=== PATIENT | female | born 1985 | race Caucasian/White ===

== ENCOUNTER 2018-06-26 05:19 | Inpatient (IN) | payer BC ==
[2018-06-26 06:02] VITALS: BMI 23.3
[2018-06-26] MEDS ORDERED: Magnesium Sulfate 20 gm/500 ml 20 GM/500 ML BAG ONE (06:14)
[2018-06-26] MEDS ORDERED: Labetalol HCl 100 MG/20 ML VIAL ONE (06:15)
[2018-06-26] MEDS ORDERED: Betamet Acet/Betamet Na Ph 30 MG/5 ML VIAL ONE (06:15)
[2018-06-26] MEDS: Lactated Ringer's 1,000 ML IV SCH ×2 (06:17→20:04)
[2018-06-26] MEDS ORDERED: Calcium Gluc 4.6 MEQ/10 ML (100 MG/ML) SLOW IVP PRN (06:31)
[2018-06-26] MEDS ORDERED: Labetalol HCl 100 MG/20 ML VIAL SLOW IVP PRN (06:31)
[2018-06-26] MEDS ORDERED: HYDROcodone/Acetaminophen 5/325 mg Tablet PO PRN ×2 (06:31)
[2018-06-26] MEDS ORDERED: Acetaminophen 500 MG TAB PO PRN (06:31)
[2018-06-26] MEDS ORDERED: Lidocaine 1% (PF) 30 ML VIAL SC PRN (06:31)
[2018-06-26] MEDS ORDERED: Diphenoxylate HCl/Atropine Tablet PO PRN (06:31)
[2018-06-26] MEDS ORDERED: Butorphanol Tartrate 1 MG/ML VIAL SLOW IVP PRN (06:31)
[2018-06-26] MEDS ORDERED: Promethazine HCl 25 MG/ML VIAL IM PRN (06:31)
[2018-06-26] MEDS ORDERED: Misoprostol 200 MCG TAB PR PRN (06:31)
[2018-06-26] MEDS ORDERED: Sodium Chloride 0.9% 100 ML ONE (06:38)
[2018-06-26] MEDS ORDERED: Penicillin G Potassium 5 MILL.UNITS VIAL ONE (06:38)
[2018-06-26] MEDS ORDERED: Magnesium Sulfate 20 GM/WATER 500 ML BAG IVPB SCH (06:45)
[2018-06-26] MEDS ORDERED: Penicillin G Potassium 5 MILL.UNITS in Sodium Chloride 0.9% 100 ML IVPB SCH (06:45)
[2018-06-26 06:56] LABS: Hemoglobin 11.9 g/dL (12.0-16.0); Mean Corpuscular HGB CONC 36.5 g/dL (32.0-36.0); Mean Corpuscular Hemoglobin 32.7 pg (27.0-31.0); Mean Corpuscular Volume 89.8 fL (78.0-98.0); Mean Platelet Volume 8.6 fL (7.4-10.4); Platelet Count 168 thou/uL (130-400); RBC Distribution Width 11.8 % (11.5-14.5); Red Blood Cell (RBC) Count 3.63 mill/uL (4.20-5.40); White Blood Cell (WBC) Count 10.3 thou/uL (4.8-10.8)
[2018-06-26 07:03] LABS: ALT (SGPT) 13 U/L (8-55); AST (SGOT) 15 U/L (5-34); Albumin 4.6 g/dL (3.5-5.0); Alkaline Phosphatase 61 U/L (40-150); Anion Gap 13 mmol/L (10-20); BUN (Urea Nitrogen) 15 mg/dL (7.0-18.7); Bilirubin, Total 0.5 mg/dL (0.2-1.2); Calc. Creatinine Clearance 108 mL/min (70-130); Calcium 9.4 mg/dL (7.8-10.44); Carbon Dioxide 24 mmol/L (22-29); Chloride 105 mmol/L (98-107); Estimated GFR-MDRD Greater than 90; Globulin 2.5 g/dL (2.4-3.5); Glucose 96 mg/dL (70-105); Potassium 3.9 mmol/L (3.5-5.1); Protein, Total 7.1 g/dL (6.0-8.3); Sodium 138 mmol/L (136-145)
[2018-06-26 07:22] LABS: Syphilis Antibody Nonreactive (Nonreactive); Syphilis Antibody Index 0.13 S/CO (<1.00 Non-Reactive)
[2018-06-26 07:29] LABS: HBSAg Index 0.21 S/CO (0-0.99); Hep B Surf Ag Non-Reactive S/CO (NonReactive)
[2018-06-26] MEDS: Ondansetron HCl/PF 4 MG/2 ML Vial IVP PRN (07:30)
--- NOTE | 2018-06-26 08:10 | PDOC.LDHP ---
Labor and Delivery H&P Chief complaint: loss of fluid HPI: 32yo at 35w1d by LMP c/o ROM this am, clear fluid. Denies sx PIH. Occ abd pain, no intense ctx pains. Good FM Current gestational age (weeks): 35 Due date: 07/29/18 Dating criteria: last menstrual period Grav: 1 Para: 0 Current complications: none Abnormal US findings: No Past Medical History: CHTN prev on lisinopril, nl BP this , h/o aplastic anemia s/p chemo and BMT, RENUKA since > 10 yr ago. hypothyroidism, on replacement, well controlled. Current medications: pre-hunter vitamins, other (levothyroxine) Previous surgical history: other (bone marrow transplant, blood transfusions with aplastic anemia) Allergies/Adverse Reactions: Allergies Allergy/AdvReac Type Severity Reaction Status Date / Time amoxicillin [From Augmentin] Allergy Mild Hives Verified 06/05/18 21:37 clavulanic acid Allergy Mild itching Verified 06/05/18 21:37 [From Augmentin] promethazine [From Phenergan] Allergy Mild itching Verified 06/05/18 21:37 tramadol Allergy Mild itching Verified 06/05/18 21:37 Social history: none - Physical Exam Vital signs reviewed and normal: yes General: NAD (nervous) Heart: RRR Lungs: CTAB Abdomen: gravid Extremeties: no edema FHT: category 1 [place] contractions every: rare - Vaginal Exam cm dilated: 6 Effacement: 100% Station: 0 (forebag palpable) - OB Labs RH: positive Antibody Screen: negative HIV: negative RPR: negative HEPSAg: negative 1 hour GCT: positive 3 hour GTT: normal GBS: unknown Urine drug screen: not done Rubella: immune - Assessment L&D Assessment: labor (/SROM, SIPIH) - Plan Plan: admit to L&D, GBS antibiotic prophylaxis, informed consent obtained, magnesium for seizure prophylaxis (labs wnl, urine pending. s/p labetalol 20 IV with mild range BP resulting, will cont prn labetalol.), anesthesia consult for pain management, other (BMZ 1/2, sofy consult per pt request)
[2018-06-26] MEDS: Betamet Acet/Betamet Na Ph 30 MG/5 ML VIAL IM SCH ×2 (08:19→18:35)
[2018-06-26] MEDS: Penicillin G 2.5 MILL.units 2.5 MILL.UNITS in Premix Bag 1 BAG IVPB SCH ×4 (10:58→23:35)
[2018-06-26] MEDS: Magnesium Sulfate 20 gm/500 ml 20 GM/500 ML BAG IVPB SCH (14:45)
[2018-06-26] MEDS ORDERED: Zolpidem Tartrate 5 MG TAB PO PRN (23:09)
[2018-06-27] MEDS: Magnesium Sulfate 20 gm/500 ml 20 GM/500 ML BAG IVPB SCH ×2 (00:30→10:05)
[2018-06-27] MEDS: Penicillin G 2.5 MILL.units 2.5 MILL.UNITS in Premix Bag 1 BAG IVPB SCH ×4 (04:46→18:18)
[2018-06-27] MEDS: Ondansetron HCl/PF 4 MG/2 ML Vial IVP PRN ×2 (06:14→11:54)
[2018-06-27] MEDS ORDERED: DISCONTINUE ALL PREVIOUS NARCOTICS FS SCH (07:30)
--- NOTE | 2018-06-27 07:55 | PDOC.LDPN ---
Labor & Delivery Progress Note - Subjective Subjective: comfortable, loss of fluid - Objective Vital signs reviewed and normal: yes General: NAD Uterine fundus: non tender Dilation: 6 Effacement: 100% Station: 0 AROM: clear fluid (forebag aromed) Plan: pitocin for augmentation, other (on PCN for GBS ppx, on Mag for sx ppx, no signs of PIH or mag toxicity, s/p labetalol this am for severe BP, labs wnl, PCR 1.5. Proceed with pitocin for augmentation.)
[2018-06-27] MEDS ORDERED: NS w/ Oxytocin 10 units 500 ML IV SCH (08:00)
[2018-06-27] MEDS ORDERED: Fentanyl 100 MCG/2 ML VIAL ONE (08:50)
[2018-06-27] MEDS: Bupivacaine 0.5% 20 ML, fentaNYL Citrate/PF 400 MCG in Sodium Chloride 0.9% 72 ML EPIDURAL SCH ×2 (09:26→17:30)
[2018-06-27] MEDS: Lactated Ringer's 1,000 ML IV SCH ×3 (14:56→23:35)
[2018-06-27] MEDS: hydrALAZINE 20 MG/ML VIAL SLOW IVP PRN (18:00)
[2018-06-27] MEDS: NS / Oxytocin 40 units/1000ml 1,000 ML IV PRN ×2 (20:48→21:54)
[2018-06-27 20:51] LABS: Actual Bicarbonate (HCO3a) 21.6 mEq/L (22-28); Base Excess (BEa) -4.8 mEq/L (-2.0 to +3.0)
[2018-06-27] MEDS: Carboprost 250 MCG/ML AMP IM PRN ×2 (20:55→21:23)
--- NOTE | 2018-06-27 21:09 | PDOC.LDPN ---
Labor & Delivery Progress Note - Subjective Subjective: comfortable - Objective Vital signs reviewed and normal: yes General: NAD Uterine fundus: non tender Dilation: 7 Effacement: 90% Station: 0 FHT: category 1 [place] contractions every: 5min Plan: pitocin for augmentation -: (late entry from 1200 today) Pt very obtunded on exam, DTR decreased 1+ throughout, stop Mag and check stat Mag level, no sx PIH. s/p epidural. FHT reassuring. Cont pitocin induction and GBS ppx.
--- NOTE | 2018-06-27 21:12 | PDOC.OPDEL ---
OB Operative/Delivery Note Delivery Dr/Surgeon: Josie Assist: n/a Pre-Delivery Diagnosis: ruptured membrane (superimposed PIH at 35wk) Procedure/Post Delivery Dx: spontaneous vaginal delivery (cord avulsion, PPH) Weeks gestation: 35 Anesthesia: epidural - Findings A Sex: female Weight: 4 lb 10 oz - 1 min: 3 - 5 min: 7 (9 at 10 min) - Additional Findings/Plan Placenta delivered: manual removal (following cord avulsion, prolonged 3rd stage , placenta would not separate intact, delivered in piecemeal fashion manually. Brisk bleeding following placenta, pitocin infusion and uterotonics called for, baig catheter replaced, manual uterine exploration performed mutiple times until no remaining fragments of placenta were found. Hemabate and cytotec were given. Uterus contracted well and appropriate lochia was present. EBL 2L, final qbl pending.) Repaired Obstetrical Laceration: 1st degree (hemostatic and unrepaired.) Estimated blood loss: 1741cc Post delivery plan: recovery in LICU
[2018-06-27] MEDS ORDERED: Carboprost 250 MCG/ML AMP IM SCH ×2 (21:15→21:30)
[2018-06-27] MEDS ORDERED: Magnesium Sulfate 20 gm/500 ml 20 GM/500 ML BAG IVPB SCH (21:16)
[2018-06-27] MEDS ORDERED: Diphenoxylate HCl/Atropine Tablet PO PRN (21:17)
[2018-06-27 21:19] LABS: #Eosinphils 0.1 thou/uL (0.0-0.7); #Lymphocytes 1.4 thou/uL (1.20-3.40); #Monocytes 1.2 thou/uL (0.11-0.59); %Basophils 0.1 % (0.0-1.0); %Eosinophils 0.8 % (0.0-10.0); %Lymphocytes 10.7 % (21.0-51.0); %Monocytes 9.5 % (0.0-10.0); %Neutrophils 78.9 % (42.0-75.0); Hemoglobin 9.2 g/dL (12.0-16.0); Mean Corpuscular HGB CONC 36.5 g/dL (32.0-36.0); Mean Corpuscular Hemoglobin 33.1 pg (27.0-31.0); Mean Corpuscular Volume 90.7 fL (78.0-98.0); Mean Platelet Volume 8.3 fL (7.4-10.4); Platelet Count 132 thou/uL (130-400); RBC Distribution Width 12.1 % (11.5-14.5); Red Blood Cell (RBC) Count 2.77 mill/uL (4.20-5.40); White Blood Cell (WBC) Count 12.6 thou/uL (4.8-10.8)
[2018-06-27] MEDS ORDERED: Lanolin Ointment 7 GM TUBE TOP PRN (23:06)
[2018-06-27] MEDS ORDERED: Preparation H Ointment 28 GM TUBE PR PRN (23:06)
[2018-06-27] MEDS ORDERED: HYDROcodone/Acetaminophen 5/325 mg Tablet PO PRN ×2 (23:06)
[2018-06-27] MEDS ORDERED: Benzocaine/Menthol 20-0.5% 60 ML CAN TOP PRN (23:06)
[2018-06-27] MEDS ORDERED: diphenhydrAMINE 25 MG CAP PO PRN (23:06)
[2018-06-27] MEDS ORDERED: Milk Of Magnesia 30 ML UDCUP PO PRN (23:06)
[2018-06-27] MEDS ORDERED: Bisacodyl 10 MG SUPP PR PRN (23:06)
[2018-06-27] MEDS ORDERED: NS / Oxytocin 40 units/1000ml 1,000 ML IV SCH (23:06)
[2018-06-27] MEDS ORDERED: Ibuprofen 800 MG TAB PO SCH (23:30)
[2018-06-28] MEDS: Penicillin G 2.5 MILL.units 2.5 MILL.UNITS in Premix Bag 1 BAG IVPB SCH ×2 (00:28→00:41)
[2018-06-28] MEDS: Ondansetron HCl/PF 4 MG/2 ML Vial IVP PRN (00:41)
[2018-06-28 05:53] LABS: Hemoglobin 7.6 g/dL (12.0-16.0); Mean Corpuscular Hemoglobin 33.2 pg (27.0-31.0); Mean Platelet Volume 8.4 fL (7.4-10.4); Platelet Count 110 thou/uL (130-400); RBC Distribution Width 12.4 % (11.5-14.5); Red Blood Cell (RBC) Count 2.29 mill/uL (4.20-5.40); White Blood Cell (WBC) Count 15.3 thou/uL (4.8-10.8)
[2018-06-28] MEDS ORDERED: Adacel (T-DAP) 0.5 ML VIAL IM ONE (09:00)
[2018-06-28] MEDS ORDERED: Prenatal Vitamin 1 TAB PO SCH (09:00)
--- NOTE | 2018-06-28 09:07 | PDOC.PP ---
Post Progress Note Post Day #: 1 PO intake tolerated: yes Flatus: yes Ambulation: no Vital Signs (12 hours) Temp Pulse Resp 06/28/18 04:13 98.3 F 89 18 06/28/18 00:00 98.3 F 89 18 Weight Weight 128 lb - Physical Examination General: NAD Cardiovascular: RRR Respiratory: non-labored breathing Abdominal: no distention, appropriately TTP Fundus firm & at: umb-2 Extremities: negative homans (B) (DTR 2+ throughout ext) Skin: no rash Neurological: no gross focal deficits Psychiatric: normal affect Result Diagrams: 06/28/18 05:38 06/28/18 05:38 Additional Labs: Post Labs Blood Type A POSITIVE 06/26/18 06:24 Hep Bs Antigen Non-Reactive S/CO (NonReactive) 06/26/18 06:24 (1) premature rupture of membranes (PPROM) delivered, current hospitalization Code(s): O42.919 - PRETRM RICKY ROM, UNSP TIME BETW RUPT AND ONST LABR, UNSP TRI Status: Acute (2) Severe preeclampsia Code(s): O14.10 - SEVERE PRE-ECLAMPSIA, UNSPECIFIED TRIMESTER Status: Acute Qualifiers: Trimester: third trimester Qualified Code(s): O14.13 - Severe pre-eclampsia , third trimester - Assessment/Plan PPD1 s/p PTSVD at 35w 2/2 SIPIH and PPROM c/b PPH VSSAF SIPIH- on mag x 24h no sx mag toxicity or PIH, diuresing well. Follow mag levels due to supratherapetic level yesterday. BP nl-mild, not requiring antihypertensives at this time. Had some labetalol during labor. PPH ebl 1700, hgb 12-->7.6, no ongoing bleeding, no sx anemia. Cont to monitor closely and start iron supp. Cont baig catheter, adv to reg diet, transfer to floor at 24h .
[2018-06-28] MEDS: Ferrous Sulfate 325 MG TAB PO SCH ×2 (09:53→18:14)
[2018-06-28] MEDS: Ibuprofen 800 MG TAB PO SCH ×2 (09:54→18:14)
[2018-06-28] MEDS ORDERED: Naloxone HCl 0.4 mg/ml Vial IVP PRN ×2 (11:04)
[2018-06-28] MEDS ORDERED: diphenhydrAMINE 50 MG/ML VIAL IVP PRN (11:04)
[2018-06-28] MEDS ORDERED: ePHEDrine/0.9% NaCl/PF SYRINGE 50 mg/10 ml SLOW IVP PRN (11:04)
[2018-06-28] MEDS ORDERED: Acetaminophen 325 MG TAB PO PRN (11:04)
[2018-06-28] MEDS ORDERED: Ondansetron HCl/PF 4 MG/2 ML Vial IVP PRN ×2 (11:04→22:32)
[2018-06-28] MEDS ORDERED: Eucerin (Mineral Oil/Petrolatum,White) 30 gm Jar TOP PRN (11:04)
[2018-06-28] MEDS ORDERED: Lactated Ringer's 500 ML IV PRN (11:04)
[2018-06-28] MEDS ORDERED: Communication Order-Pharmacy FS SCH (11:15)
[2018-06-28] MEDS ORDERED: fentaNYL Citrate/PF 400 MCG, Bupivacaine 0.5% 20 ML in Sodium Chloride 0.9% 72 ML EPIDURAL SCH (11:15)
[2018-06-28] MEDS: Lactated Ringer's 1,000 ML IV SCH ×3 (14:17→18:18)
[2018-06-28] MEDS: Docusate Calcium (SURFAK) 240 MG CAP PO SCH (14:17)
[2018-06-28] MEDS: hydrALAZINE 20 MG/ML VIAL SLOW IVP PRN (15:34)
[2018-06-28] MEDS ORDERED: Lanolin Ointment 7 GM TUBE TOP PRN (22:32)
[2018-06-28] MEDS ORDERED: Bisacodyl 10 MG SUPP PR PRN (22:32)
[2018-06-28] MEDS ORDERED: Benzocaine/Menthol 20-0.5% 60 ML CAN TOP PRN (22:32)
[2018-06-28] MEDS ORDERED: HYDROcodone/Acetaminophen 5/325 mg Tablet PO PRN (22:32)
[2018-06-28] MEDS ORDERED: Milk Of Magnesia 30 ML UDCUP PO PRN (22:32)
[2018-06-28] MEDS ORDERED: diphenhydrAMINE 25 MG CAP PO PRN (22:32)
[2018-06-28] MEDS ORDERED: Preparation H Ointment 28 GM TUBE PR PRN (22:32)
[2018-06-28] MEDS ORDERED: NS / Oxytocin 40 units/1000ml 1,000 ML IV SCH (22:32)
[2018-06-28] MEDS ORDERED: Ibuprofen 800 MG TAB PO SCH (22:45)
[2018-06-29 06:15] LABS: Hemoglobin 6.6 g/dL (12.0-16.0); Mean Corpuscular HGB CONC 35.4 g/dL (32.0-36.0); Mean Corpuscular Volume 93.3 fL (78.0-98.0); Mean Platelet Volume 8.5 fL (7.4-10.4); Platelet Count 115 thou/uL (130-400); RBC Distribution Width 12.7 % (11.5-14.5); Red Blood Cell (RBC) Count 2.01 mill/uL (4.20-5.40); White Blood Cell (WBC) Count 15.4 thou/uL (4.8-10.8)
[2018-06-29] MEDS: Ibuprofen 800 MG TAB PO SCH ×4 (06:30→21:29)
[2018-06-29] MEDS: Levothyroxine Sodium 88 MCG TAB PO SCH (06:31)
[2018-06-29] MEDS: Docusate Calcium (SURFAK) 240 MG CAP PO SCH ×3 (06:57→21:29)
--- NOTE | 2018-06-29 07:52 | PDOC.PP ---
Post Progress Note Post Day #: Doing well without complaints. PO intake tolerated: yes Flatus: yes Ambulation: yes (minimal) Vital Signs (12 hours) Temp Pulse Resp BP Pulse Ox 06/29/18 04:45 98.7 F 68 18 06/29/18 00:30 98.7 F 68 18 06/28/18 23:05 98.7 F 68 18 162/68 H 99 Weight Weight 128 lb - Physical Examination General: NAD Respiratory: non-labored breathing Abdominal: lochia (normal), no distention, appropriately TTP Fundus firm & at: U-3 Extremities: negative homans (B) Skin: no rash Neurological: no gross focal deficits Psychiatric: A&Ox3, normal affect Result Diagrams: 06/29/18 05:48 06/28/18 05:38 Additional Labs: Post Labs Blood Type A POSITIVE 06/26/18 06:24 Hep Bs Antigen Non-Reactive S/CO (NonReactive) 06/26/18 06:24 (1) premature rupture of membranes (PPROM) delivered, current hospitalization Code(s): O42.919 - PRETRM RICKY ROM, UNSP TIME BETW RUPT AND ONST LABR, UNSP TRI Status: Acute (2) Severe preeclampsia Code(s): O14.10 - SEVERE PRE-ECLAMPSIA, UNSPECIFIED TRIMESTER Status: Acute Qualifiers: Trimester: third trimester Qualified Code(s): O14.13 - Severe pre-eclampsia , third trimester - Assessment/Plan Patient still having some anxiety but doing well. Now s/p 24 hours of PP mag. Will continue to watch BPs today and anticipate d/c home tomorrow.
[2018-06-29] MEDS ORDERED: Calcium Carbonate 500 MG ChewTAB PO PRN (09:26)
[2018-06-29] MEDS ORDERED: ePHEDrine/0.9% NaCl/PF SYRINGE 50 mg/10 ml ONE (11:11)
[2018-06-29] MEDS ORDERED: Bupivacaine/Epinephrine 0.25% 30 ML VIAL ONE (11:11)
[2018-06-29] MEDS: Ferrous Sulfate 325 MG TAB PO SCH ×2 (14:19→18:09)
[2018-06-29] MEDS: Prenatal Vitamin 1 TAB PO SCH (14:19)
[2018-06-29 14:40] LABS: Hemoglobin 7.5 g/dL (12.0-16.0)
[2018-06-30] MEDS: Levothyroxine Sodium 88 MCG TAB PO SCH (06:39)
[2018-06-30] MEDS: Ibuprofen 800 MG TAB PO SCH ×2 (06:40→21:56)
[2018-06-30] MEDS ORDERED: hydrALAZINE 20 MG/ML VIAL SLOW IVP SCH (07:45)
[2018-06-30] MEDS: Ferrous Sulfate 325 MG TAB PO SCH ×3 (08:13→18:31)
[2018-06-30] MEDS: Docusate Calcium (SURFAK) 240 MG CAP PO SCH (08:14)
[2018-06-30] MEDS: Prenatal Vitamin 1 TAB PO SCH (08:15)
[2018-06-30] MEDS ORDERED: Labetalol 100 MG TAB PO SCH (09:00)
[2018-06-30] MEDS ORDERED: NIFEdipine XL 30 MG TAB PO SCH (09:00)
--- NOTE | 2018-06-30 09:23 | PRG ---
DATE OF SERVICE: 06/30/2018. SUBJECTIVE: The patient is a 32-year-old female now day #3 status post a spontaneous vaginal delivery for premature rupture of membranes with superimposed PIH. The patient had approximately 2 liter of blood loss due to atony and retained placenta. The patient's most recent hemoglobin was 7.5, hematocrit 21.5, which had been stable now for 24 hours. The patient today or in the last 24 hours has been having occasional blood pressure spikes into the severe range with the most recent blood pressure being in the 180s over 90s. The patient is otherwise not having symptoms. She is tolerating a diet, having decreased lochia and ambulating and voiding on her own. PHYSICAL EXAMINATION: GENERAL: The patient appears to be in no acute distress. She is alert and oriented, cooperative and pleasant to interact with. HEENT: Head is normocephalic, atraumatic. ABDOMEN: Fundus is firm. EXTREMITIES: Nontender with 1-2+ pitting edema bilaterally. ASSESSMENT AND PLAN: The patient is a 32-year-old female now day #3 status post a delivery for premature rupture of membranes and preeclampsia. We have instituted the patient on oral antihypertensives, [id number] mg bid has been started. In addition, the patient will be given 10 mg of hydralazine IV now for her most current blood pressure. Should she have good blood pressure control for the next 24 hours, the patient can be discharged tomorrow when her primary OB, Dr. Galindo will be back on service. Addendum: blood pressure medicine decreased to labetolol 100mg bid as blood pressures in the 110s systolic MTDD
[2018-06-30] MEDS: Labetalol 100 MG TAB PO SCH (21:59)
[2018-07-01] MEDS: Docusate Calcium (SURFAK) 240 MG CAP PO SCH ×3 (00:13→23:41)
[2018-07-01] MEDS: Levothyroxine Sodium 88 MCG TAB PO SCH (06:33)
--- NOTE | 2018-07-01 07:37 | PDOC.PP ---
Post Progress Note Post Day #: 5 Subjective: feels well no sx PIH PO intake tolerated: yes Flatus: yes Ambulation: yes Vital Signs (12 hours) Temp Pulse Resp BP Pulse Ox 07/01/18 04:00 98.2 F 76 18 133/78 06/30/18 23:28 98.5 F 95 18 06/30/18 21:59 82 06/30/18 20:00 98.5 F 95 18 157/86 H 97 Weight Weight 128 lb - Physical Examination General: NAD Cardiovascular: RRR Respiratory: non-labored breathing Abdominal: no distention, appropriately TTP Fundus firm & at: umb-2 Extremities: negative homans (B) Skin: no rash Neurological: no gross focal deficits Psychiatric: normal affect Result Diagrams: 07/01/18 19:07 06/28/18 05:38 Additional Labs: Post Labs Blood Type A POSITIVE 06/26/18 06:24 Hep Bs Antigen Non-Reactive S/CO (NonReactive) 06/26/18 06:24 (1) premature rupture of membranes (PPROM) delivered, current hospitalization Code(s): O42.919 - PRETRM RICKY ROM, UNSP TIME BETW RUPT AND ONST LABR, UNSP TRI Status: Acute (2) Severe preeclampsia Code(s): O14.10 - SEVERE PRE-ECLAMPSIA, UNSPECIFIED TRIMESTER Status: Acute Qualifiers: Trimester: third trimester Qualified Code(s): O14.13 - Severe pre-eclampsia , third trimester (3) hemorrhage Code(s): O72.1 - OTHER IMMEDIATE HEMORRHAGE Status: Acute Qualifiers: hemorrhage type: other immediate Qualified Code(s): O72.1 - Other immediate hemorrhage - Assessment/Plan PPD4 s/p PTSVD at 35w 2/2 PPROM and PIH c/b PPH VSSAF PIH- s/p Mag, no sx PIH, started on labetalol yesterday for severe HTN, well controlled now, will cont on DC, BP log at home and FU 1 wk for BP check PPH- 2/2 cord avulsion, manual extraction/fragmentation of placenta, hgb 12--> ebl approx 1700cc-->hgb stable at 7.5, no s/sx anemia, no indication for transfusion at this time. Breastpumping, infant in NICU doing well, no sx of PPD Rh pos RImm DC home FU 1 wk Addendum: called by nursing at approx 1700, pt had incr cramping in pelvis and chills, temp was 101.2, BP severely elevated, will check CBC Ucx, start empiric amp/gent for endometritis, tylenol for fever and prn labetalol for elevated BPs. Hold DC.
[2018-07-01] MEDS: Labetalol 100 MG TAB PO SCH ×2 (08:07→21:10)
[2018-07-01] MEDS: Ferrous Sulfate 325 MG TAB PO SCH ×2 (08:07→18:13)
[2018-07-01] MEDS: Prenatal Vitamin 1 TAB PO SCH (08:08)
[2018-07-01] MEDS: HYDROcodone/Acetaminophen 5/325 mg Tablet PO PRN (16:18)
[2018-07-01] MEDS ORDERED: Ibuprofen 800 MG TAB PO PRN (18:01)
[2018-07-01] MEDS ORDERED: Acetaminophen 500 MG TAB PO PRN (18:59)
[2018-07-01 19:37] LABS: Anisocytosis SLIGHT = 6-15 cells (100X) (0-5/hpf); Band 6 % (5-11); Eosinophils 2 % (0-10); Hemoglobin 7.8 g/dL (12.0-16.0); Lymphocytes 7 % (21-51); MDiff Complete? YES; Mean Corpuscular Hemoglobin 33.8 pg (27.0-31.0); Mean Corpuscular Volume 93.9 fL (78.0-98.0); Mean Platelet Volume 7.6 fL (7.4-10.4); Monocytes 10 % (0-10); Myelocyte 1 % (0-0); Neutrophil 74 % (42-75); Nucleated RBC 3 % (0); PLT Morphology Comment Appears Adequate; Platelet Count 211 thou/uL (130-400); Polychromasia MODERATE = 3-4 cells (100X) (0-2/hpf); RBC Distribution Width 13.3 % (11.5-14.5); Red Blood Cell (RBC) Count 2.31 mill/uL (4.20-5.40); Tear Drops SLIGHT = 2-5 cells (100X) (0-1/hpf); White Blood Cell (WBC) Count 17.5 thou/uL (4.8-10.8)
[2018-07-01] MEDS: Ampicillin 2 GM in Sodium Chloride 0.9% 100 ML IVPB SCH (19:44)
[2018-07-01] MEDS: Gentamicin Sulfate 290 MG in Sodium Chloride 0.9% 100 ML IVPB SCH (20:47)
[2018-07-02] MEDS ORDERED: Sodium Chloride 0.9% 10 ML ONE ×3 (01:06→11:56)
[2018-07-02] MEDS: Ampicillin 2 GM in Sodium Chloride 0.9% 100 ML IVPB SCH ×4 (01:10→18:27)
[2018-07-02] MEDS: HYDROcodone/Acetaminophen 5/325 mg Tablet PO PRN ×2 (04:12→12:00)
[2018-07-02] MEDS: Levothyroxine Sodium 88 MCG TAB PO SCH (06:05)
--- NOTE | 2018-07-02 08:09 | PDOC.PP ---
Post Progress Note Post Day #: 5 Subjective: incr abd crampiness since yesterday, not feeling well overall. no heavy vag bleeding, light. no foul odor. PO intake tolerated: yes Flatus: yes Ambulation: yes Vital Signs (12 hours) Temp Pulse Resp BP Pulse Ox 07/02/18 04:25 99.4 F 80 16 134/96 H 97 07/02/18 02:30 98.4 F 07/02/18 01:30 100.1 F H 84 15 130/76 98 07/01/18 22:00 100.1 F H 84 15 130/76 98 07/01/18 21:10 97 07/01/18 21:00 98.4 F 97 16 Weight Weight 128 lb - Physical Examination General: NAD Cardiovascular: RRR Respiratory: non-labored breathing Abdominal: + bowel sounds (+fundal tenderness), no distention Fundus firm & at: umb-2 Extremities: negative homans (B) Skin: no rash Neurological: no gross focal deficits Psychiatric: normal affect Result Diagrams: 07/01/18 19:07 06/28/18 05:38 Additional Labs: Post Labs Blood Type A POSITIVE 06/26/18 06:24 Hep Bs Antigen Non-Reactive S/CO (NonReactive) 06/26/18 06:24 (1) premature rupture of membranes (PPROM) delivered, current hospitalization Code(s): O42.919 - PRETRM RICKY ROM, UNSP TIME BETW RUPT AND ONST LABR, UNSP TRI Status: Acute (2) Severe preeclampsia Code(s): O14.10 - SEVERE PRE-ECLAMPSIA, UNSPECIFIED TRIMESTER Status: Acute Qualifiers: Trimester: third trimester Qualified Code(s): O14.13 - Severe pre-eclampsia , third trimester (3) hemorrhage Code(s): O72.1 - OTHER IMMEDIATE HEMORRHAGE Status: Acute Qualifiers: hemorrhage type: other immediate Qualified Code(s): O72.1 - Other immediate hemorrhage (4) Endometritis Code(s): N71.9 - INFLAMMATORY DISEASE OF UTERUS, UNSPECIFIED Status: Acute - Assessment/Plan PPD5 s/p PTSVD 2/2 PPROM and PIH c/b PPH manual extraction of placenta and now endometritis Tmax 101.2 yesterday about 4pm, started on amp/gent, still with tenderness from infection, will cont abx until at least 24h afebrile and pain improved. WBC 17 , Ucx pending, if respikes will get blood cultures as well. PIH- on labetalol 100 bid, BP severe range incr med to 200 bid and cont to monitor, no sx PIH. DC ibuprofen. Cont care.
[2018-07-02] MEDS: Labetalol 100 MG TAB PO SCH ×2 (09:13→21:29)
[2018-07-02] MEDS: Docusate Calcium (SURFAK) 240 MG CAP PO SCH ×2 (09:13→20:47)
[2018-07-02] MEDS: Ferrous Sulfate 325 MG TAB PO SCH ×2 (09:13→18:26)
[2018-07-02] MEDS: Prenatal Vitamin 1 TAB PO SCH (09:14)
[2018-07-02] MEDS ORDERED: Labetalol 100 MG TAB PO SCH ×2 (11:15→13:15)
[2018-07-02] MEDS: Gentamicin Sulfate 290 MG in Sodium Chloride 0.9% 100 ML IVPB SCH (19:44)
[2018-07-03] MEDS: Ampicillin 2 GM in Sodium Chloride 0.9% 100 ML IVPB SCH ×3 (00:26→13:36)
[2018-07-03] MEDS: HYDROcodone/Acetaminophen 5/325 mg Tablet PO PRN (05:52)
[2018-07-03] MEDS: Levothyroxine Sodium 88 MCG TAB PO SCH (05:54)
[2018-07-03] MEDS: Labetalol 100 MG TAB PO SCH ×3 (06:24→08:09)
[2018-07-03] MEDS: Docusate Calcium (SURFAK) 240 MG CAP PO SCH (08:08)
[2018-07-03] MEDS: Prenatal Vitamin 1 TAB PO SCH (08:09)
--- NOTE | 2018-07-03 10:14 | PDOC.PP ---
Post Progress Note Post Day #: 6 Subjective: pelvic pain and cramping is improving. no heavy vag bleeding, fever or chills. No sx PIH. PO intake tolerated: yes Flatus: yes Ambulation: yes Vital Signs (12 hours) Temp Pulse Resp BP Pulse Ox 07/03/18 08:52 127/67 07/03/18 08:09 83 07/03/18 08:07 83 07/03/18 08:05 171/87 H 07/03/18 08:00 98.1 F 83 20 182/106 H 98 07/03/18 06:24 82 07/03/18 04:05 98.8 F 82 16 161/94 H 99 07/02/18 23:32 99.1 F 88 16 113/70 95 Weight Weight 128 lb - Physical Examination General: NAD Cardiovascular: RRR Respiratory: non-labored breathing Abdominal: no distention, appropriately TTP Fundus firm & at: umb-2 nontender Extremities: negative homans (B) Neurological: no gross focal deficits Psychiatric: normal affect Result Diagrams: 07/01/18 19:07 06/28/18 05:38 Additional Labs: Post Labs Blood Type A POSITIVE 06/26/18 06:24 Hep Bs Antigen Non-Reactive S/CO (NonReactive) 06/26/18 06:24 (1) premature rupture of membranes (PPROM) delivered, current hospitalization Code(s): O42.919 - PRETRM RICKY ROM, UNSP TIME BETW RUPT AND ONST LABR, UNSP TRI Status: Acute (2) Severe preeclampsia Code(s): O14.10 - SEVERE PRE-ECLAMPSIA, UNSPECIFIED TRIMESTER Status: Acute Qualifiers: Trimester: third trimester Qualified Code(s): O14.13 - Severe pre-eclampsia , third trimester (3) hemorrhage Code(s): O72.1 - OTHER IMMEDIATE HEMORRHAGE Status: Acute Qualifiers: hemorrhage type: other immediate Qualified Code(s): O72.1 - Other immediate hemorrhage (4) Endometritis Code(s): N71.9 - INFLAMMATORY DISEASE OF UTERUS, UNSPECIFIED Status: Acute - Assessment/Plan PPD6 s/p PTSVD at 35w 2/2 PPROM, SIPIH c/b PPH manual extraction of placenta, severe HTN and endometritis. Afebrile for 48h DC IV abx, fundal tenderness improved. SIPIH- BP has been very labile, responds well to labetalol 200 BID, will continue this on DC. No Sx, s/p Mag PPH hgb stable at 7.8 will cont Iron on DC. DC to B&B as baby in NICU, FU in 1 wk with me.
[2018-07-03 12:08] VITALS: BP 131/83; TEMP 98
[2018-07-03] MEDS: Ferrous Sulfate 325 MG TAB PO SCH (14:02)
== END 2018-07-03 17:00 | disposition home or self-care (01) | DRG 767 ==
LOC: L&D/OP 05:19 → L&D 06:45 → 3SE 06-28 23:56
PROVIDERS: ADMIT Student in an Organized Health Care Education/Training Program; ATTEND Student in an Organized Health Care Education/Training Program
PROC: 10E0XZZ Delivery of Products of Conception, External Approach (ICD-10-PCS; principal; 2018-06-27)
PROC: 10D17Z9 Manual Extraction of Products of Conception, Retained, Via Natural or Artificial Opening (ICD-10-PCS; 2018-06-27)
DX: O42.013 Preterm premature rupture of membranes, onset of labor within 24 hours of rupture, third trimester (principal); O86.12 Endometritis following delivery; O72.0 Third-stage hemorrhage; O14.14 Severe pre-eclampsia complicating childbirth; O69.89X0 Labor and delivery complicated by other cord complications, not applicable or unspecified; O99.284 Endocrine, nutritional and metabolic diseases complicating childbirth; E03.9 Hypothyroidism, unspecified; Z3A.35 35 weeks gestation of pregnancy; Z88.1 Allergy status to other antibiotic agents; Z88.5 Allergy status to narcotic agent; Z88.8 Allergy status to other drugs, medicaments and biological substances; Z79.899 Other long term (current) drug therapy; Z37.0 Single live birth
CPT/HCPCS: 36415; 51702; 80053; 82565; 82570; 82805; 83735; 84155; 84156; 85025; 85027; 86780; 86850; 86900; 86901; 87086; 87340; 88307; 99285; A4216; J0290; J0360; J0702; J1580; J2001; J2405; J2540; J3010; J3475; J3490; J7050

== ENCOUNTER 2018-07-04 13:16 | Emergency (ER) | payer OTHER, BC | END 2018-07-04 14:41 | disposition home or self-care (01) | LOC: ERS 13:16 | DX: Z04.3 Encounter for examination and observation following other accident (principal); N93.9 Abnormal uterine and vaginal bleeding, unspecified; E03.9 Hypothyroidism, unspecified; I10 Essential (primary) hypertension; Z79.899 Other long term (current) drug therapy; V89.2XXA Person injured in unspecified motor-vehicle accident, traffic, initial encounter | CPT/HCPCS: 99283 ==

== ENCOUNTER 2019-06-13 13:53 | Inpatient (IN) | payer BC ==
[2019-06-13 14:49] VITALS: BMI 23.2
[2019-06-13] MEDS ORDERED: hydrALAZINE 20 MG/ML VIAL SLOW IVP PRN ×2 (15:15→17:02)
[2019-06-13] MEDS: hydrALAZINE 20 MG/ML VIAL ONE (15:24)
[2019-06-13 15:39] LABS: #Basophils 0.1 thou/uL (0.0-0.2); #Eosinphils 0.1 thou/uL (0.0-0.7); #Lymphocytes 3.1 thou/uL (1.20-3.40); %Basophils 0.8 % (0.0-1.0); %Eosinophils 0.7 % (0.0-10.0); %Lymphocytes 30.2 % (21.0-51.0); %Monocytes 9.6 % (0.0-10.0); %Neutrophils 58.6 % (42.0-75.0); Hemoglobin 12.1 g/dL (12.0-16.0); Mean Corpuscular HGB CONC 35.5 g/dL (32.0-36.0); Mean Corpuscular Hemoglobin 31.2 pg (27.0-31.0); Mean Platelet Volume 8.3 fL (7.4-10.4); Platelet Count 145 thou/uL (130-400); RBC Distribution Width 11.7 % (11.5-14.5); Red Blood Cell (RBC) Count 3.88 mill/uL (4.20-5.40); White Blood Cell (WBC) Count 10.2 thou/uL (4.8-10.8)
[2019-06-13] MEDS ORDERED: Labetalol HCl 100 MG/20 ML VIAL ONE (15:48)
[2019-06-13 15:59] LABS: ALT (SGPT) 18 U/L (8-55); AST (SGOT) 28 U/L (5-34); Albumin 3.1 g/dL (3.5-5.0); Alkaline Phosphatase 111 U/L (40-150); Anion Gap 14 mmol/L (10-20); BUN (Urea Nitrogen) 19 mg/dL (7.0-18.7); Bilirubin, Total 0.3 mg/dL (0.2-1.2); Calc. Creatinine Clearance 101 mL/min (70-130); Calcium 8.9 mg/dL (7.8-10.44); Carbon Dioxide 19 mmol/L (22-29); Chloride 110 mmol/L (98-107); Estimated GFR-MDRD Greater than 90; Glucose 105 mg/dL (70-105); Potassium 4.6 mmol/L (3.5-5.1); Protein, Total 6.1 g/dL (6.0-8.3); Sodium 138 mmol/L (136-145)
[2019-06-13] MEDS ORDERED: Labetalol HCl 100 MG/20 ML VIAL SLOW IVP SCH (16:00)
[2019-06-13] MEDS ORDERED: Labetalol HCl 100 MG/20 ML VIAL SLOW IVP PRN (16:31)
[2019-06-13] MEDS ORDERED: diphenhydrAMINE 50 MG in Sodium Chloride 0.9% 50 ML IVPB SCH (16:45)
[2019-06-13] MEDS ORDERED: Labetalol 100 MG TAB PO SCH (17:15)
[2019-06-13] MEDS ORDERED: Calcium Gluc 4.6 MEQ/10 ML (100 MG/ML) SLOW IVP PRN (17:16)
[2019-06-13] MEDS ORDERED: Magnesium Sulfate 20 GM/WATER 500 ML BAG IVPB SCH (17:30)
[2019-06-13] MEDS: Magnesium Sulfate 20 gm/500 ml 20 GM/500 ML BAG IVPB SCH (17:40)
[2019-06-13] MEDS: Betamet Acet/Betamet Na Ph 30 MG/5 ML VIAL IM SCH (18:08)
--- NOTE | 2019-06-13 18:12 | ULT ---
US OB Ltd History: Evaluate weight presentation and placental location Comparison: Ultrasound OB June 05, 2018 Findings: Real-time grayscale color and spectral analysis of the gravid uterus was performed. Single viable intrauterine with heart rate documented at 145 bpm. Amniotic fluid index sara ures 10.4 cm. Cervix is closed measuring 3 cm. The position is vertex and the placenta is posterior. Average ultrasound age: 24 week 2 day with estimated date of delivery October 01, 2019. Estimated weight is 1 lb. 8 oz., 10th percentile. Impression: Single viable intrauterine as above.
[2019-06-13] MEDS: Labetalol HCl 100 MG/20 ML VIAL SLOW IVP PRN ×2 (19:07→22:34)
[2019-06-13] MEDS ORDERED: diphenhydrAMINE 50 MG in Sodium Chloride 0.9% 50 ML IVPB PRN (20:33)
[2019-06-13] MEDS ORDERED: Ondansetron ODT 4 MG TAB PO PRN (20:34)
[2019-06-13] MEDS: NIFEdipine XL 60 MG TAB PO SCH (21:01)
[2019-06-14] MEDS: Magnesium Sulfate 20 gm/500 ml 20 GM/500 ML BAG IVPB SCH ×2 (01:36→14:23)
--- NOTE | 2019-06-14 03:26 | HP ---
PRIMARY OB: Veena Galindo MD. CHIEF COMPLAINT: Elevated blood pressures. HISTORY OF PRESENT ILLNESS: The patient is a 33-year-old G2, P1 female, with an intrauterine at 25 weeks and 1 day, complicated by chronic hypertension and cervical insufficiency, status post cerclage. The patient was seen today at a routine visit with her maternal medicine physician. There was noted to have blood pressures in the severe range and was brought here for evaluation. The patient denies any headache, shortness of breath, abdominal pains, labor pains. She does report that she takes 60 mg of Procardia twice a day. She also reports that she just started today up from 60 mg at night and 30 during the day. She also reports that she is on labetalol 200 mg that she takes 2 to 3 times a day as she needs to. When inquired about this p.r.n. doses, she reports that she postpones her medication if she notices her blood pressures are well within the normal range. The patient reports that she was recently hospitalized and often for blood pressure exacerbation and there was noted to have a 24-hour urine protein of 312 mg. The patient self reports anxiety and believes a lot of her blood pressure now may be partially caused by the level of anxiety she is feeling. The patient denies any recent illness with fever and cough, headache, chest pain, shortness of breath, nausea, vomiting, diarrhea, constipation, hip problems, knee problems, muscle weakness, any new rashes. She denies vaginal bleeding, change in discharge. She denies urinary urgency or frequency. She denies uterine contractions. PAST MEDICAL HISTORY: 1. Chronic hypertension. 2. Hyperlipidemia. 3. Aplastic anemia requiring a bone marrow transplant and stem cell transplant with whole-body irradiation. 4. Premature ovarian failure. PAST SURGICAL HISTORY: Cervical biopsies and cervical cerclage. ALLERGIES: AMBIEN, AUGMENTIN, PHENERGAN, AND TRAMADOL. MEDICATIONS: 1. Hydroxyprogesterone caproate 250 mg/mL IM weekly. 2. Levothyroxine 88 mcg daily. 3. Procardia XL 60 mg twice a day. 4. Labetalol 200 mg twice a day. SOCIAL HISTORY: Denies drug, alcohol, tobacco use. OB LABS: She is rubella immune. Baseline protein to creatinine ratio was 0.28. Hepatitis B surface antigen nonreactive. Blood type is A positive. Antibody screen, HIV is negative. Most recent TSH is 1.2 on February 2019. REVIEW OF SYSTEMS: Per HPI. PHYSICAL EXAMINATION: VITAL SIGNS: Blood pressure on presentation 163/98, heart rate of 66, respiratory rate of 16, saturating 100% on room air, temperature 98.5, blood pressure is persisted in the severe range in the 160s/90s to 160/100s up to 175/104. The patient was given 5 mg of hydralazine followed by 20 mg of IV labetalol. The patient later required a second dose of IV labetalol. She was started on her oral regimen which included labetalol 200 mg 3 times a day and was given her 200 afternoon dose p.o. Since then, her blood pressures have remained in the mild range, primarily in the 150s/90s with her most recent blood pressure being 139/88, heart rate of 62, saturating 99% on room air. GENERAL: She appears to be in no acute distress. She is alert, oriented, cooperative, and pleasant to interact with. HEAD: Normocephalic and atraumatic. LUNGS: Clear to auscultation bilaterally. HEART: Regular rate and rhythm. ABDOMEN: Soft, gravid, nontender. There is no right upper quadrant tenderness to palpation. EXTREMITIES: Nontender. Nonedematous. DTRs are 1+ to 2+. She does have 1 to 2 beats of clonus. DIAGNOSTIC DATA: heart tracing shows fetus with a baseline in the 140s with moderate long-term variability appropriate for a 25-week gestation. Tocometer is not showing any contractions. LABORATORY DATA: White count 10.2, hemoglobin 12.1, hematocrit 34.2, platelets 145,000. Sodium 138, potassium 4.6, chloride 110, bicarb 19, BUN 19, creatinine 0.73, glucose 105, uric acid 8.0, calcium 8.9, AST 28, ALT 18. Total random urine; protein is 656 and creatinine 72.4. Protein to creatinine ratio being 9. Blood type is A positive with a negative antibody screen. ultrasound shows a fetus in vertex presentation measuring 1 pound 8 ounces at the 10th percentile. Placenta is posterior and cervix is closed measuring 3 cm. ASSESSMENT AND PLAN: The patient is a 33-year-old female, with chronic hypertension and superimposed preeclampsia as evidenced by severe range pressures plus significant increase in proteinuria. I do not know her baseline platelet status as platelets maybe running lower than her baseline. We will work to identify what that is at the outside facility. However, platelets here in June of last year were 211. The patient has been placed on magnesium for seizure prophylaxis. She has been given her baseline medications and continued the increase in her Procardia and I have increased her labetalol to t.i.d. scheduled. We will continue her levothyroxine 88 mcg daily. The patient has also been started on steroids for lung maturity. Magnesium will also serve for neuro protection. Neonatology has been notified of the patient's presence and at risk for early delivery. They are prepared and have said that the baby can be appropriately cared for here if delivered in the near future. If Dr. Galindo, her primary OB, will be assuming care after the weekend, and we will be keeping a close eye on her with serial labs over the near future and treat her blood pressures p.r.n. as necessary with IV labetalol as she seems to respond well to it. Fetus is appropriate for gestational age with a category I tracing. The patient is on SCDs for DVT prophylaxis. Job ID: [id number]
[2019-06-14 06:50] LABS: #Lymphocytes 1.8 thou/uL (1.20-3.40); #Monocytes 0.2 thou/uL (0.11-0.59); #Neutrophils 7.3 thou/uL (1.40-6.50); %Eosinophils 0.1 % (0.0-10.0); %Lymphocytes 19.8 % (21.0-51.0); %Monocytes 1.7 % (0.0-10.0); %Neutrophils 78.4 % (42.0-75.0); Hemoglobin 11.4 g/dL (12.0-16.0); Mean Corpuscular HGB CONC 33.8 g/dL (32.0-36.0); Mean Corpuscular Volume 88.8 fL (78.0-98.0); Mean Platelet Volume 8.1 fL (7.4-10.4); Platelet Count 116 thou/uL (130-400); RBC Distribution Width 11.8 % (11.5-14.5); Red Blood Cell (RBC) Count 3.79 mill/uL (4.20-5.40); White Blood Cell (WBC) Count 9.3 thou/uL (4.8-10.8)
[2019-06-14] MEDS: Levothyroxine Sodium 88 MCG TAB PO SCH (07:07)
[2019-06-14 07:08] LABS: ALT (SGPT) 17 U/L (8-55); AST (SGOT) 27 U/L (5-34); Albumin 2.7 g/dL (3.5-5.0); Alkaline Phosphatase 100 U/L (40-150); Anion Gap 17 mmol/L (10-20); BUN (Urea Nitrogen) 20 mg/dL (7.0-18.7); Bilirubin, Total 0.2 mg/dL (0.2-1.2); Calc. Creatinine Clearance 94 mL/min (70-130); Calcium 8.4 mg/dL (7.8-10.44); Carbon Dioxide 16 mmol/L (22-29); Chloride 103 mmol/L (98-107); Estimated GFR-MDRD 86; Globulin 3.3 g/dL (2.4-3.5); Glucose 127 mg/dL (70-105); Potassium 4.7 mmol/L (3.5-5.1); Sodium 131 mmol/L (136-145)
[2019-06-14] MEDS: Lactated Ringer's 1,000 ML IV SCH ×2 (07:20→19:24)
--- NOTE | 2019-06-14 07:36 | PRG ---
DATE OF SERVICE: 06/14/2019 SUBJECTIVE: The patient is a 33-year-old, G2, P1 female with an intrauterine at 25 weeks and 2 days, complicated by chronic hypertension and superimposed preeclampsia. The patient was admitted yesterday for severe elevations in her blood pressure that required multiple IV medications. She is on magnesium for seizure prophylaxis, has been getting steroids for lung maturity. The patient is currently on Procardia XL 60 mg p.o. b.i.d. and labetalol 200 mg t.i.d. with IV labetalol p.r.n. for elevated blood pressures. Labs yesterday were significant for a urine to creatinine ratio of 9 and platelets of 145,000. Repeat labs this morning show platelets falling to 115,000 this morning. Blood pressures have remained in the normal to mild range. The patient this morning has no complaints. Denies any headache, shortness of breath, or abdominal pain. OBJECTIVE: VITAL SIGNS: Current blood pressure is 133/80, heart rate of 75, respiratory rate 18, temperature 98. GENERAL: She is resting comfortably in bed without any signs of distress. ABDOMEN: Soft. EXTREMITIES: Nontender. DTRs are 2+ with clonus, which has shown some more exaggeration as compared to yesterday. ASSESSMENT AND PLAN: The patient is hospital day 2, on magnesium for chronic hypertension, superimposed preeclampsia. Platelets are dropping. Will need repeat labs later this afternoon for evaluation. intensive care unit is aware of her presence and is okay with delivery should that be necessity. The oncoming physician, Dr. Manning will be caring for her until Dr. Galindo returns on Sunday. Job ID: [id number]
[2019-06-14] MEDS: Ondansetron PF 4 MG/2 ML Vial IVP PRN (07:48)
[2019-06-14] MEDS: NIFEdipine XL 60 MG TAB PO SCH ×2 (09:29→21:05)
[2019-06-14] MEDS: Prenatal Vitamin 1 TAB PO SCH (09:32)
[2019-06-14] MEDS: Lactinex Tablet PO SCH (09:32)
[2019-06-14] MEDS: Labetalol HCl 100 MG/20 ML VIAL SLOW IVP PRN ×2 (11:48→12:27)
[2019-06-14] MEDS ORDERED: Labetalol 100 MG TAB PO SCH ×2 (12:30)
[2019-06-14 14:01] LABS: #Lymphocytes 2.1 thou/uL (1.20-3.40); #Monocytes 0.8 thou/uL (0.11-0.59); #Neutrophils 6.1 thou/uL (1.40-6.50); %Basophils 0.3 % (0.0-1.0); %Eosinophils 0.2 % (0.0-10.0); %Lymphocytes 23.2 % (21.0-51.0); %Monocytes 9.2 % (0.0-10.0); %Neutrophils 67.1 % (42.0-75.0); Hemoglobin 11.1 g/dL (12.0-16.0); Mean Corpuscular HGB CONC 35.1 g/dL (32.0-36.0); Mean Corpuscular Hemoglobin 30.9 pg (27.0-31.0); Mean Platelet Volume 8.2 fL (7.4-10.4); Platelet Count 124 thou/uL (130-400); RBC Distribution Width 11.8 % (11.5-14.5); Red Blood Cell (RBC) Count 3.59 mill/uL (4.20-5.40); White Blood Cell (WBC) Count 9.1 thou/uL (4.8-10.8)
[2019-06-14 14:21] LABS: ALT (SGPT) 16 U/L (8-55); AST (SGOT) 25 U/L (5-34); Albumin 2.6 g/dL (3.5-5.0); Alkaline Phosphatase 94 U/L (40-150); Anion Gap 17 mmol/L (10-20); BUN (Urea Nitrogen) 21 mg/dL (7.0-18.7); Bilirubin, Total 0.2 mg/dL (0.2-1.2); Calc. Creatinine Clearance 93 mL/min (70-130); Calcium 7.8 mg/dL (7.8-10.44); Carbon Dioxide 15 mmol/L (22-29); Chloride 102 mmol/L (98-107); Estimated GFR-MDRD 84; Globulin 3.2 g/dL (2.4-3.5); Glucose 144 mg/dL (70-105); Magnesium 8.6 mg/dL (1.6-2.6); Potassium 4.6 mmol/L (3.5-5.1); Protein, Total 5.8 g/dL (6.0-8.3); Sodium 129 mmol/L (136-145)
[2019-06-14] MEDS: Betamet Acet/Betamet Na Ph 30 MG/5 ML VIAL IM SCH (18:14)
[2019-06-14] MEDS: hydrALAZINE 20 MG/ML VIAL ONE (19:20)
[2019-06-14] MEDS ORDERED: hydrALAZINE 20 MG/ML VIAL SLOW IVP PRN (20:31)
[2019-06-14 20:51] LABS: #Eosinphils 0.1 thou/uL (0.0-0.7); #Lymphocytes 1.3 thou/uL (1.20-3.40); #Monocytes 0.4 thou/uL (0.11-0.59); #Neutrophils 6.1 thou/uL (1.40-6.50); %Basophils 0.3 % (0.0-1.0); %Eosinophils 0.7 % (0.0-10.0); %Lymphocytes 16.5 % (21.0-51.0); %Neutrophils 77.5 % (42.0-75.0); Hemoglobin 10.9 g/dL (12.0-16.0); Mean Corpuscular HGB CONC 34.6 g/dL (32.0-36.0); Mean Corpuscular Hemoglobin 30.4 pg (27.0-31.0); Mean Corpuscular Volume 87.8 fL (78.0-98.0); Mean Platelet Volume 8.2 fL (7.4-10.4); Platelet Count 110 thou/uL (130-400); RBC Distribution Width 11.8 % (11.5-14.5); Red Blood Cell (RBC) Count 3.58 mill/uL (4.20-5.40); White Blood Cell (WBC) Count 7.9 thou/uL (4.8-10.8)
[2019-06-14] MEDS: Labetalol 100 MG TAB PO SCH (20:58)
--- NOTE | 2019-06-14 20:59 | PRG ---
DATE OF SERVICE: 06/14/2019 TIME OF SERVICE: 20:30. SUBJECTIVE: Ms. Harris is 25 weeks gestation and 2 days with chronic hypertension with superimposed preeclampsia. She is noted to have proteinuria. She was admitted back on the and has been getting betamethasone for lung maturity, magnesium sulfate for seizure prophylaxis as well as neuroprotection. She was restarted on labetalol 200 mg p.o. b.i.d. She denies headache or scotoma. OBJECTIVE: VITAL SIGNS: The patient's vital signs today have been with a pulse in the 60s to 70s. Blood pressures have ranged from on 120s/70s to 186/110, these were very labile intermediate results and were after the patient has been approximately 12 hours of not receiving her p.o. labetalol. She was restarted on her p.o. labetalol. She did have an elevated blood pressure this evening at 167/100 and decision was made to add hydralazine IV for treatment since she is already receiving labetalol p.o. Urine output has been greater than 100 mL/hour. status has been reassuring. DTRs are 2+. Magnesium level earlier in the day was elevated at 10.4, it was stopped for an hour and restarted at 1 g/hour, last value was at 19:16 of 7.9. Platelet count upon admission was 145, it decreased this morning to 116, however, redo this afternoon was 124. Last hematocrit was 31.6%. IMPRESSION: Severe preeclampsia, superimposed on chronic hypertension at 25 weeks and 2 days. PLAN: Because of the patient's early gestational age, prolongation of the is a desired process at this time. We will continue the magnesium and corticosteroids as well as labetalol and hydralazine. Preference would be to reach approximately 48 hours of therapy, which would be the p.m. of 06/15. We will continue current therapy and recheck all laboratory values a.m. of 06/15. Dvck-co-ckfo encounter time at the bedside during this afternoon is approximately 20 minutes. Job ID: [id number]
[2019-06-14] MEDS: Acetaminophen 325 MG TAB PO PRN (22:06)
[2019-06-15] MEDS: Lactated Ringer's 1,000 ML IV SCH ×2 (05:23→15:32)
[2019-06-15] MEDS: Levothyroxine Sodium 88 MCG TAB PO SCH (06:10)
[2019-06-15 06:48] LABS: #Eosinphils 0.1 thou/uL (0.0-0.7); #Lymphocytes 1.6 thou/uL (1.20-3.40); #Monocytes 0.3 thou/uL (0.11-0.59); #Neutrophils 5.6 thou/uL (1.40-6.50); %Basophils 0.2 % (0.0-1.0); %Eosinophils 0.8 % (0.0-10.0); %Lymphocytes 21.4 % (21.0-51.0); %Neutrophils 73.6 % (42.0-75.0); Hemoglobin 11.3 g/dL (12.0-16.0); Mean Corpuscular HGB CONC 34.9 g/dL (32.0-36.0); Mean Corpuscular Hemoglobin 30.8 pg (27.0-31.0); Mean Corpuscular Volume 88.3 fL (78.0-98.0); Mean Platelet Volume 8.3 fL (7.4-10.4); Platelet Count 118 thou/uL (130-400); RBC Distribution Width 11.8 % (11.5-14.5); Red Blood Cell (RBC) Count 3.67 mill/uL (4.20-5.40); White Blood Cell (WBC) Count 7.6 thou/uL (4.8-10.8)
[2019-06-15 06:59] LABS: AST (SGOT) 22 U/L (5-34); Anion Gap 14 mmol/L (10-20); BUN (Urea Nitrogen) 26 mg/dL (7.0-18.7); Calc. Creatinine Clearance 92 mL/min (70-130); Calcium 7.2 mg/dL (7.8-10.44); Carbon Dioxide 19 mmol/L (22-29); Chloride 103 mmol/L (98-107); Estimated GFR-MDRD 83; Glucose 148 mg/dL (70-105); Magnesium 8.3 mg/dL (1.6-2.6); Potassium 4.7 mmol/L (3.5-5.1); Sodium 131 mmol/L (136-145)
--- NOTE | 2019-06-15 08:06 | PDOC.EVN ---
Event Note - Event Note Event Note: Teletypesetter Operator OBCHADN Report in process 1700...will be off Mag for steroid benefit. Baby is vertex 25 weeks...LOIS aware and ok with delivery here Severe Preeclampsia among CHTN On Mag and has cerclage...on scheduled labetolol and procardia with prn hydralazine
--- NOTE | 2019-06-15 08:13 | PRG ---
DATE OF SERVICE: 06/15/2019 TIME OF SERVICE: 0736 hours. SUBJECTIVE: The patient is a 25 weeks 3 days with chronic hypertension, superimposed preeclampsia with severe range proteinuria. She was admitted on the for magnesium sulfate prophylaxis and betamethasone for lung maturity. She remains on labetalol 200 p.o. b.i.d. and Procardia 60 b.i.d. The patient is resting comfortably. Denies headache. Reports active fetus. OBJECTIVE: Blood pressures overnight have been in 130s to 140s systolic over 70s to 80s diastolic. Urine outputs being greater than 100 mL/hour. DTRs were 2+. LABORATORY: Repeat labs this morning were performed. Platelet count is up slightly from 110 to 118. Hematocrit is stable at 32%. AST remains within normal limits. Magnesium level is at 8.3, slightly higher than 7.9 yesterday p.m., but lower than previous high of 10.4. IMPRESSION: Second trimester with chronic hypertension, superimposed preeclampsia, history of aplastic anemia, status post bone marrow transplant, cervical cerclage. PLAN: Continue magnesium sulfate at least through this afternoon. We will continue betamethasone and antihypertensives. If the patient's blood pressure is stabilized on oral medications, may consider discontinuation from Labor and Delivery Unit and possibly discharge home with outpatient followup. Dr. Hieu Robert, OB hospitalist, taking over at 0800 hours. Job ID: [id number]
[2019-06-15] MEDS: NIFEdipine XL 60 MG TAB PO SCH ×2 (09:11→22:14)
[2019-06-15] MEDS: Labetalol 100 MG TAB PO SCH ×2 (09:12→22:13)
[2019-06-15] MEDS: Prenatal Vitamin 1 TAB PO SCH (09:15)
[2019-06-15] MEDS: Lactinex Tablet PO SCH (09:15)
[2019-06-15] MEDS: Magnesium Sulfate 20 gm/500 ml 20 GM/500 ML BAG IVPB SCH (10:01)
--- NOTE | 2019-06-15 13:58 | PDOC.LDPN ---
Labor & Delivery Progress Note - Objective Vital signs reviewed and normal: yes (120/76 on dual medication) General: NAD Uterine fundus: non tender - Assessment (1) Hypertension Code(s): I10 - ESSENTIAL (PRIMARY) HYPERTENSION Current Visit: No Status: Acute Plan: continue plan of care (Mag Sulfate will be stopped aroung 1800; continue dual BP meds (labetolol and procardia); steroids given...cerclage remains.), other (At Bedside now, plan discussed with her and partner. Doing well so far. SCDs when in bed. Once mag over, no longer bed rest)
[2019-06-15] MEDS: Acetaminophen 325 MG TAB PO PRN (22:18)
[2019-06-16] MEDS: Levothyroxine Sodium 88 MCG TAB PO SCH (05:43)
[2019-06-16] MEDS: Prenatal Vitamin 1 TAB PO SCH ×2 (08:52→08:57)
[2019-06-16] MEDS: Lactinex Tablet PO SCH ×2 (08:52→08:56)
[2019-06-16] MEDS: NIFEdipine XL 60 MG TAB PO SCH ×2 (08:53→20:43)
[2019-06-16 09:10] LABS: #Basophils 0.1 thou/uL (0.0-0.2); #Eosinphils 0.1 thou/uL (0.0-0.7); #Lymphocytes 2.7 thou/uL (1.20-3.40); #Neutrophils 5.3 thou/uL (1.40-6.50); %Basophils 0.6 % (0.0-1.0); %Eosinophils 1.1 % (0.0-10.0); %Lymphocytes 29.4 % (21.0-51.0); %Monocytes 10.7 % (0.0-10.0); %Neutrophils 58.2 % (42.0-75.0); Hemoglobin 11.2 g/dL (12.0-16.0); Mean Corpuscular HGB CONC 33.7 g/dL (32.0-36.0); Mean Corpuscular Hemoglobin 29.4 pg (27.0-31.0); Mean Corpuscular Volume 87.2 fL (78.0-98.0); Mean Platelet Volume 8.2 fL (7.4-10.4); Platelet Count 117 thou/uL (130-400); RBC Distribution Width 11.7 % (11.5-14.5); Red Blood Cell (RBC) Count 3.79 mill/uL (4.20-5.40)
[2019-06-16] MEDS: Labetalol 100 MG TAB PO SCH ×2 (09:24→20:43)
[2019-06-16 09:40] LABS: ALT (SGPT) 31 U/L (8-55); AST (SGOT) 34 U/L (5-34); Albumin 2.9 g/dL (3.5-5.0); Alkaline Phosphatase 97 U/L (40-150); Anion Gap 11 mmol/L (10-20); BUN (Urea Nitrogen) 34 mg/dL (7.0-18.7); Bilirubin, Total 0.2 mg/dL (0.2-1.2); Calc. Creatinine Clearance 84 mL/min (70-130); Calcium 7.1 mg/dL (7.8-10.44); Carbon Dioxide 21 mmol/L (22-29); Chloride 106 mmol/L (98-107); Estimated GFR-MDRD 75; Globulin 3.1 g/dL (2.4-3.5); Glucose 111 mg/dL (70-105); Potassium 4.1 mmol/L (3.5-5.1); Sodium 134 mmol/L (136-145)
--- NOTE | 2019-06-16 12:13 | PDOC.LDPN ---
Labor & Delivery Progress Note - Subjective Subjective: no concerns (was feeling weak and dizzy with SCHREIBER yesterday after coming off mag, now feeling better. no SCHREIBER vision change RUQ pain, +FM, no ctx.) - Objective Abnormal vital signs: nl-mild range BP, severe range x 1 last pm at 1700 General: NAD Uterine fundus: non tender FHT: category 1 [place] contractions every: none -: Repeat labs today, platelets have been stable over last 2 days, mildly decreased , LFT wnl, BUN/Creat has been gradually increasing, cont to monitor with daily checks. Cont HTN meds procardia and labetalol. Q shift monitoring. Will repeat sono for BPP this week. s/p BMZ and Mag. For inpt mgmt of severe preeclampsia.
[2019-06-16] MEDS: Betamet Acet/Betamet Na Ph 30 MG/5 ML VIAL IM SCH (21:38)
[2019-06-16] MEDS: Lactated Ringer's 1,000 ML IV SCH (21:39)
[2019-06-16] MEDS: Labetalol HCl 100 MG/20 ML VIAL SLOW IVP PRN (22:19)
[2019-06-17] MEDS: Lactated Ringer's 1,000 ML IV SCH ×2 (05:58→08:46)
[2019-06-17] MEDS: Levothyroxine Sodium 88 MCG TAB PO SCH (06:02)
[2019-06-17 07:51] LABS: Hemoglobin 10.2 g/dL (12.0-16.0); Mean Corpuscular HGB CONC 35.3 g/dL (32.0-36.0); Mean Corpuscular Hemoglobin 31.2 pg (27.0-31.0); Mean Corpuscular Volume 88.2 fL (78.0-98.0); Mean Platelet Volume 8.6 fL (7.4-10.4); Platelet Count 106 thou/uL (130-400); RBC Distribution Width 11.6 % (11.5-14.5); Red Blood Cell (RBC) Count 3.28 mill/uL (4.20-5.40); White Blood Cell (WBC) Count 9.2 thou/uL (4.8-10.8)
[2019-06-17 08:34] LABS: Bilirubin, Total 0.2 mg/dL (0.2-1.2); Calcium 7.6 mg/dL (7.8-10.44); Chloride 107 mmol/L (98-107); Potassium 4.3 mmol/L (3.5-5.1); Sodium 133 mmol/L (136-145)
[2019-06-17] MEDS: Labetalol 100 MG TAB PO SCH (08:46)
[2019-06-17] MEDS: NIFEdipine XL 60 MG TAB PO SCH ×2 (08:47→22:44)
[2019-06-17 09:19] LABS: Albumin 2.5 g/dL (3.5-5.0)
[2019-06-17 09:22] LABS: Globulin 2.7 g/dL (2.4-3.5); Glucose 77 mg/dL (70-105); Protein, Total 5.2 g/dL (6.0-8.3)
[2019-06-17 09:23] LABS: Carbon Dioxide 18 mmol/L (22-29)
[2019-06-17 09:24] LABS: Alkaline Phosphatase 80 U/L (40-150)
[2019-06-17 09:25] LABS: Calc. Creatinine Clearance 91 mL/min (70-130); Estimated GFR-MDRD 82
[2019-06-17 09:26] LABS: BUN (Urea Nitrogen) 33 mg/dL (7.0-18.7)
[2019-06-17 09:27] LABS: AST (SGOT) 47 U/L (5-34)
[2019-06-17 09:28] LABS: ALT (SGPT) 37 U/L (8-55)
[2019-06-17 09:38] LABS: Anion Gap 12 mmol/L (10-20)
[2019-06-17 09:42] LABS: Lymphocytes 39 % (21-51); MDiff Complete? YES; Monocytes 10 % (0-10); Myelocyte 1 % (0-0); Neutrophil 48 % (42-75); Platelet Morphology Comment Appears Decreased; Polychromasia SLIGHT = 2-3 cells (100X) (0-2/hpf); Reactive Lymphocytes 2 % (0-10)
--- NOTE | 2019-06-17 10:21 | ULT ---
ULTRASOUND BIOPHYSICAL PROFILE: DATE: 06/17/2019. HISTORY: A 33-year-old female with preeclampsia at 25 weeks. FINDINGS: breathin tone: 2 movement: 2 Amniotic fluid volume: 2 IMPRESSION: Normal biophysical profile score of 8/8, excluding the non-stress test. jn [] POS: T[facility]
--- NOTE | 2019-06-17 10:41 | PDOC.LDPN ---
Labor & Delivery Progress Note - Subjective Subjective: comfortable, other (No symptoms of PIH including SCHREIBER vision change RUQ pain. No ctx VB LOF. Good FM) - Objective Abnormal vital signs: BP mild-severe overnight. General: NAD, resting Uterine fundus: non tender FHT: category 1 (for gestational age) [place] contractions every: none - Assessment (1) Pre-eclampsia superimposed on chronic hypertension, antepartum Code(s): O11.9 - PRE-EXISTING HYPERTENSION WITH PRE-ECLAMPSIA, UNSP TRIMESTER; O10.019 - PRE-EXISTING ESSENTIAL HTN COMP , UNSP TRIMESTER Current Visit: Yes Status: Acute (2) 25 weeks gestation of Code(s): Z3A.25 - 25 WEEKS GESTATION OF Current Visit: Yes Status : Acute -: BP elevated last night, pt states she was stressed out about some things. Incr nighttime labetalol to 400mg, cont procardia XL 60bid and labetalol 200 in am. Repeat labs today show kidney function stabilized, plt slightly lower at 106 and AST has increased to 47. Asymptomatic currently. s/p Mag. Hypothyroid- TSH elevated, incr levothyroxine to 112mcg Prematurity- Minh consult ordered as well as repeat EFW/BPP for counseling purposes. S/p BMZ and mag Cont inpatient mgmt of Preeclampsia with severe features. If Plt < 100K, LFT twice upper limit of nl, Creat = 1, symptoms, or BP unable to be controlled with medications will be for delivery. Cont q shift monitoring.
--- NOTE | 2019-06-17 10:45 | ULT ---
ULTRASOUND OBSTETRICAL LIMITED: DATE: 06/13/2019. HISTORY: A 33-year-old female with preeclampsia at 25 weeks. FINDINGS: number: [place]. lie: Cephalic. Maternal cervix: Closed and 3 cm in length. Placenta: Posterior. No placenta previa. Amniotic fluid volume: RADHA 10.5 cm. heart rate: 145 b.p.m. anatomy not evaluated. biometry: Head circumference (HC): 22.0 cm 24 w 0 d Biparietal diameter (BPD): 6.0 cm 24 w 4 d Abdominal circumference (AC): 20.0 cm 24 w 3 d Femur length (FL): 4.3 cm 24 w 0 d Average ultrasound age (AUA): 24 w 2 d Estimated date of delivery (EVERARDO): 10/01/2019. Last menstrual period (LMP): 12/19/2018. Gestational age by LMP: 25 w 1 d. Estimated weight (EFW): 673 g +/- 100 g (1 lb, 8 oz +/- 4 oz). IMPRESSION: 1. Live 2nd trimester intrauterine gestation. 2. Estimated gestational age of 24 weeks, 2 days. 3. Cephalic lie. LYNN Martines POS: TPC
--- NOTE | 2019-06-17 13:30 | PDOC.APC ---
Antepartum Consult ANTWON GOEL is a 33 year old female at [25 5/7] gestational weeks. I was asked by Dr Galindo to speak with the patient regarding anticipated course for a baby born at 25-26 weeks. I outlined that the timing and mode of delivery is a decision that will be made by the OB service. Once the patient is taken for delivery, the resuscitation team will be present. The initial focus will be on respiratory stabilization and may include CPAP or intubation with surfactant administration. I discussed that the patient will need to be admitted to the NICU in an isolette due to temperature instability associated with prematurity. We will then obtain umbilical IV access as babies are at risk for hypoglycemia and feeding intolerance requiring TPN administration. We discussed that babies born are at higher risk for feeding intolerance including NEC, infection and jaundice. I discussed that breastmilk is the best nutrition for babies and she is strongly encouraged to pump after delivery. Mother does plan to breastfeed and we discussed the availability of donor milk. Mom does not want donor milk right now as they follow a specific diet which cannot be guaranteed with donor milk. I have asked Dr. Galindo if she is a candidate for expression to have her milk for initial milk feedings. We discussed slowly increasing enteral feedings and the use of TPN while increasing feeding volumes. I outlined the need for a feeding tube (OG or NG) until suck/swallow/breathe reflex can be established. We discussed that the baby will need ROP or head US screening and is at risk for IVH and ROP. We also discussed the risk for PDA, low blood pressure and the need for ionotropes. I explained that the duration of hospital stay will be determined on the clinical course of the baby. Mother asked about transfer to [facility] prior to delivery. We discussed that this hospital s NICU is capable of taking care of babies at 26 weeks and the expected weight of the baby but that we do not have pediatric subspecialist support available so should her baby need consultation, he would need to be transferred. I advised that if she was considering transport, she should discuss with Dr. Galindo before her health condition necessitated delivery. She had the opportunity to ask questions and they were answered to her satisfaction. I encouraged her to contact our service if further questions arise. Labs: Ante Labs Blood Type A POSITIVE 06/13/19 17:22
[2019-06-17] MEDS: Labetalol HCl 100 MG/20 ML VIAL SLOW IVP PRN ×2 (17:02→17:24)
[2019-06-17] MEDS ORDERED: Labetalol 100 MG TAB PO SCH ×2 (19:15→21:00)
[2019-06-17] MEDS ORDERED: Magnesium Sulfate 4 GM in Sodium Chloride 0.9% 250 ML 250 ML IVPB SCH (19:15)
--- NOTE | 2019-06-17 19:20 | PDOC.EVN ---
Event Note - Event Note Event Note: @191: SUDHAKAR chaz LDR 6 25 weeks 5 days Severe PIH S/P Steroids NICU aware Evaluated Patient at bedside at Dr donohue Request. S/P 2 rounds prn antihypertensive at 1720ish and 1740s. Last received oral labetolol 400mg about 10 minutes ago. mag in use now (load) FHTs reviewed I reviewed plan of care with her, and her family member. Cheryl (RN) with me in room. reported to Dr donohue. Continue plan of care.
[2019-06-17] MEDS: Ondansetron PF 4 MG/2 ML Vial IVP PRN (19:40)
[2019-06-17 20:16] LABS: #Eosinphils 0.1 thou/uL (0.0-0.7); #Lymphocytes 3.7 thou/uL (1.20-3.40); #Monocytes 1.5 thou/uL (0.11-0.59); #Neutrophils 6.1 thou/uL (1.40-6.50); %Basophils 0.4 % (0.0-1.0); %Eosinophils 0.7 % (0.0-10.0); %Lymphocytes 32.3 % (21.0-51.0); %Monocytes 12.9 % (0.0-10.0); %Neutrophils 53.7 % (42.0-75.0); Hemoglobin 10.6 g/dL (12.0-16.0); Mean Corpuscular HGB CONC 35.7 g/dL (32.0-36.0); Mean Corpuscular Hemoglobin 31.4 pg (27.0-31.0); Mean Corpuscular Volume 87.9 fL (78.0-98.0); Mean Platelet Volume 8.5 fL (7.4-10.4); Platelet Count 126 thou/uL (130-400); RBC Distribution Width 11.6 % (11.5-14.5); Red Blood Cell (RBC) Count 3.38 mill/uL (4.20-5.40); White Blood Cell (WBC) Count 11.3 thou/uL (4.8-10.8)
[2019-06-17 20:37] LABS: ALT (SGPT) 39 U/L (8-55); AST (SGOT) 42 U/L (5-34); Albumin 2.5 g/dL (3.5-5.0); Alkaline Phosphatase 86 U/L (40-150); Anion Gap 10 mmol/L (10-20); BUN (Urea Nitrogen) 30 mg/dL (7.0-18.7); Bilirubin, Total 0.2 mg/dL (0.2-1.2); Calc. Creatinine Clearance 88 mL/min (70-130); Calcium 7.4 mg/dL (7.8-10.44); Carbon Dioxide 20 mmol/L (22-29); Chloride 108 mmol/L (98-107); Estimated GFR-MDRD 80; Globulin 2.7 g/dL (2.4-3.5); Glucose 101 mg/dL (70-105); Potassium 4.2 mmol/L (3.5-5.1); Protein, Total 5.2 g/dL (6.0-8.3); Sodium 134 mmol/L (136-145)
[2019-06-17] MEDS ORDERED: diphenhydrAMINE 25 MG CAP PO SCH (20:45)
[2019-06-17] MEDS ORDERED: Calcium Carbonate 500 MG ChewTAB PO SCH (21:00)
--- NOTE | 2019-06-17 22:09 | PDOC.LDPN ---
Labor & Delivery Progress Note - Subjective Subjective: other (no sx PIH. ) - Objective Abnormal vital signs: mild range bps General: NAD Uterine fundus: non tender FHT: category 1 (for GA) [place] contractions every: none - Assessment (1) Pre-eclampsia superimposed on chronic hypertension, antepartum Code(s): O11.9 - PRE-EXISTING HYPERTENSION WITH PRE-ECLAMPSIA, UNSP TRIMESTER; O10.019 - PRE-EXISTING ESSENTIAL HTN COMP , UNSP TRIMESTER Current Visit: Yes Status: Acute (2) 25 weeks gestation of Code(s): Z3A.25 - 25 WEEKS GESTATION OF Current Visit: Yes Status : Acute -: Pt had spike in BP after restarting IV in severe range treated with labetalol 20mg IV x 2 and hydralazine 10mg IV x 1. Pt was given po labetalol 400mg (incr as of today) dose early and started on mag and labs redrawn. Labs were stable. BP remained mild, no sx PIH. Cont procardia xl 60 bid and labetalol 200 q am and 400 q pm. Pt requests transfer to [facility]. Transfer accepted by Dr. Nick. Cont Mag on transfer.
--- NOTE | 2019-06-17 22:17 | PDOC.EVN ---
Event Note - Event Note Event Note: SUDHAKAR OnCall: [id number] Asked to sign transfer forms on behalf of Dr galindo. Dr Galindo has arranged transfer of this patient due to escalating level of care under [address]. [address] Galindo prior note
[2019-06-17 22:45] VITALS: BP 150/85
[2019-06-18] MEDS ORDERED: Levothyroxine Sodium 112 MCG TAB PO SCH (06:00)
[2019-06-18] MEDS ORDERED: Labetalol 100 MG TAB PO SCH (09:00)
== END 2019-06-17 23:14 | disposition short-term general hospital (02) | DRG 833 ==
LOC: L&D/OP 13:53 → L&D 18:31
PROVIDERS: ADMIT Student in an Organized Health Care Education/Training Program; ATTEND Student in an Organized Health Care Education/Training Program
DX: O11.2 Pre-existing hypertension with pre-eclampsia, second trimester (principal); O10.912 Unspecified pre-existing hypertension complicating pregnancy, second trimester; O99.282 Endocrine, nutritional and metabolic diseases complicating pregnancy, second trimester; E78.5 Hyperlipidemia, unspecified; E03.9 Hypothyroidism, unspecified; Z3A.25 25 weeks gestation of pregnancy; Z79.899 Other long term (current) drug therapy; Z88.1 Allergy status to other antibiotic agents; Z88.8 Allergy status to other drugs, medicaments and biological substances
CPT/HCPCS: 36415; 51702; 59025; 76815; 76819; 80048; 80053; 82570; 83735; 84156; 84443; 84450; 84550; 85025; 86850; 86900; 86901; 87081; 99285; J0360; J0702; J1200; J2405; J3475; J7050; Q0162; Q0163